=== PATIENT | female | born 1985 | race Caucasian/White ===

== ENCOUNTER 2017-01-29 01:48 | Inpatient (IN) | payer OTHER ==
[~2017-01-29] VITALS: Ht 157.5 cm; Wt 130.9 kg
[2017-01-29] VITALS (26 sets, daily range): BP systolic 90–145; BP diastolic 46–97; PULSE 65–117; TEMP 97.6–98.7
[~2017-01-29 01:48] MED LIST: FOLIC ACID 11 MG/TA1 PO; K-DUR 10 MEQ T10 MEQ PO; LEVAQUIN 5500 MG/TA1 PO; NORCO 325 MG-7.1 TAB PO; PRENATAL; UNISOM25 MG PO; ZANTAC 150MG T150 MG PO; ZOFRAN 4MG T4 MG/TAB PO
[2017-01-29] MEDS ORDERED: TYLENOL 500MG500 MG PO (02:13)
[2017-01-29] MEDS ORDERED: BENADRYL50 MG PO (02:14)
[2017-01-29 03:16] LABS: BASO # 0.1 (0.0-0.2); BASO % 0.3 % (0.0-2.0); EOS # 0.2 (0.0-0.7); GRAN # 12.7 (1.4-6.5); GRAN % 74.8 % (42.2-75.2); HEMATOCRIT 40.8 % (37.0-47.0); HEMOGLOBIN 13.9 g/dl (12.5-16.0); LYMPH # 2.9 (1.2-3.4); LYMPH % 17.3 % (20.0-51.0); MEAN CELL VOLUME 91 fl (80.0-100.0); MEAN CORPUSCULAR HEMOGLOBIN 31 pg (27.0-31.0); MEAN CORPUSCULAR HGB CONC 34 g/dl (33.0-37.0); MEAN PLATELET VOLUME 11.4 fl (7.4-10.4); PLATELET COUNT 170 K/mm3 (130-400); RED BLOOD COUNT 4.49 M/mm3 (4.10-5.30)
[2017-01-29] MEDS ORDERED: MOTRIN 800800 MG/TAB PO (16:30)
[2017-01-29] MEDS ORDERED: PERCOCET 325 MG1 TA2 PO (16:30)
[2017-01-30 03:30] VITALS: BP 121/72; PULSE 102; TEMP 97.5
[2017-01-30 08:45] LABS: HEMATOCRIT 38.2 % (37.0-47.0); HEMOGLOBIN 12.6 g/dl (12.5-16.0)
[2017-01-30 08:50] VITALS: BP 133/69; PULSE 114; TEMP 97.6
[2017-01-30 12:00] VITALS: BP 121/64; PULSE 103; TEMP 97.5
[2017-01-30 17:30] VITALS: BP 140/62; PULSE 110; TEMP 98
[2017-01-30 21:40] VITALS: BP 118/55; PULSE 113; TEMP 98.6
[2017-01-31 09:00] VITALS: BP 140/87; PULSE 104; TEMP 97.4
== END 2017-01-31 14:30 | disposition home or self-care (01) | DRG 765 ==
LOC: LDRO 01:48 → OB 01:49 → LDR 01:49 → OB 05:15
PROVIDERS: Obstetrics & Gynecology
PROC: 10D00Z1 Extraction of Products of Conception, Low, Open Approach (ICD-10-PCS; principal; 2017-01-29)
DX: O75.82 Onset (spontaneous) of labor after 37 completed weeks of gestation but before 39 completed weeks gestation, with delivery by (planned) cesarean section (principal); O10.92 Unspecified pre-existing hypertension complicating childbirth; O99.824 Streptococcus B carrier state complicating childbirth; O34.211 Maternal care for low transverse scar from previous cesarean delivery; N85.8 Other specified noninflammatory disorders of uterus; Z3A.37 37 weeks gestation of pregnancy; Z37.0 Single live birth
CPT/HCPCS: J0690; J2370; J2405; J2590; J3010; J7120

== ENCOUNTER 2017-09-23 10:21 | Emergency (ER) | payer OTHER ==
[~2017-09-23] VITALS: Ht 157.5 cm; Wt 113.6 kg
[~2017-09-23 10:21] MED LIST changes: +BENADRYL50 MG PO; +MOTRIN 800800 MG/TAB PO; +PERCOCET 325 MG1 TA2 PO; +TYLENOL 500MG500 MG PO
[2017-09-23 10:24] VITALS: TEMP 97.9
[2017-09-23 10:55] LABS: BASO % 0.7 % (0.0-2.0); EOS # 0.1 (0.0-0.7); EOS % 1.8 % (0-4.0); GRAN % 52.8 % (42.2-75.2); HEMATOCRIT 42.9 % (37.0-47.0); HEMOGLOBIN 14.8 g/dl (12.5-16.0); MEAN CELL VOLUME 86 fl (80.0-100.0); MEAN CORPUSCULAR HEMOGLOBIN 30 pg (27.0-31.0); MEAN CORPUSCULAR HGB CONC 35 g/dl (33.0-37.0); MEAN PLATELET VOLUME 11.1 fl (7.4-10.4); MONO # 0.5 (0.1-0.6); MONO % 9.5 % (1.7-9.3); PLATELET COUNT 201 K/mm3 (130-400); RED BLOOD COUNT 5.01 M/mm3 (4.10-5.30); REDCELL DISTRIBUTION WIDTH-CV 12.8 % (11.5-14.5)
[2017-09-23 11:01] LABS: ALBUMIN 3.8 gm/dL (3.5-5.0); BILIRUBIN,TOTAL 0.6 mg/dL (0.0-1.0); CALCIUM 8.4 mg/dL (8.4-10.2); CREATININE, serum 0.83 mg/dL (0.52-1.25); POTASSIUM 4.1 mmol/L (3.4-5.0); TOTAL PROTEIN 7.4 gm/dL (6.4-8.2)
[2017-09-23] MEDS ORDERED: SPRINTEC 35 MCG1 TAB PO (15:22)
[2017-09-23 15:43] VITALS: BP 124/72; PULSE 84
== END 2017-09-23 15:43 | disposition home or self-care (01) ==
LOC: COL.ER 10:21
PROVIDERS: Family Medicine
DX: N93.8 Other specified abnormal uterine and vaginal bleeding (principal)
CPT/HCPCS: J3010; J7030

== ENCOUNTER 2019-07-19 05:16 | Emergency (ER) | payer OTHER ==
[~2019-07-19] VITALS: Ht 157.5 cm; Wt 122.7 kg
[~2019-07-19 05:16] MED LIST changes: +SPRINTEC 35 MCG1 TAB PO
[2019-07-19 06:13] LABS: STREP SCREEN POSITIVE
[2019-07-19] MEDS ORDERED: MAGIC MOUTH PO (06:17)
[2019-07-19] MEDS ORDERED: AMOXICILLIN 50500 MG PO (06:17)
[2019-07-19 06:26] VITALS: BP 124/73; PULSE 99; TEMP 97.5
== END 2019-07-19 06:32 | disposition home or self-care (01) ==
LOC: COL.ER 05:16
PROVIDERS: Emergency Medicine
DX: J02.0 Streptococcal pharyngitis (principal); F32.9 Major depressive disorder, single episode, unspecified; F41.9 Anxiety disorder, unspecified; E66.9 Obesity, unspecified; F17.210 Nicotine dependence, cigarettes, uncomplicated; Z88.6 Allergy status to analgesic agent; Z68.42 Body mass index [BMI] 45.0-49.9, adult
CPT/HCPCS: J1885